=== PATIENT | female | born 1970 | race Caucasian/White ===

== ENCOUNTER 2018-11-19 21:04 | Outpatient (REF) | payer OTHER, SELFPAY | END 2018-11-19 21:24 | LOC: LBN 21:04 | PROVIDERS: PCP Nurse Practitioner Family; Visit Provider Nurse Practitioner Family | DX: N30.90 Cystitis, unspecified without hematuria (principal) | CPT/HCPCS: 87086 ==

== ENCOUNTER 2018-12-27 01:50 | Outpatient (CLI) | payer OTHER, SELFPAY ==
[2018-12-27 10:03] LABS: Abs Immature Grans 0.02 k/cumm (0.0-0.09); Absolute Basophil Count 0.03 k/cumm (0.0-0.2); Absolute Lymphocyte Count 1.28 k/cumm (1.2-3.4); Absolute Monocyte Count 0.69 k/cumm (0.11-0.7); Absolute Neutrophil Count 6.72 k/cumm (1.2-6.7); Basophils % 0.3; Eosinophils % 1.1; HCT 37.9 % (36.0-46.0); HGB 12.4 g/dL (12.0-15.5); Immature Grans % 0.2; Lymphocytes % 14.5; Mean Corp. HGB Concentration 32.7 g/dL (32.0-36.0); Mean Corpuscular Hemoglobin 30.7 pg (27.0-33.0); Mean Corpuscular Volume 93.8 fL (80-95); Monocytes % 7.8; Neutrophils % 76.1; Platelet Count 317 x1000/uL (130-400); RBC 4.04 m/cumm (4.00-5.20); RBC Distribution Width 14.1 % (11.7-14.6); White Blood Cell Count 8.84 k/cumm (4.4-10.8)
[2018-12-27 12:41] LABS: ALT 29 U/L (12-78); AST 20 U/L (15-37); Albumin 3.5 g/dL (3.4-5.0); Alkaline Phosphatase 158 U/L (46-116); Anion Gap 9.2 mmol/L (3-11); BUN 22 mg/dL (7-18); Bilirubin, Total 0.9 mg/dL (0.2-1.0); CO2 28.8 mmol/L (21.0-32.0); CREATININE 1.09 mg/dL (0.55-1.02); Calcium 8.9 mg/dL (8.5-10.1); Chloride 100 mmol/L (98-107); Cholesterol 205 mg/dL (50-200); Estimated GFR 54.04 (mL/min/1.73m2); Glucose 92 mg/dL (70-100); HDL Cholesterol 49 mg/dL (40-60); LDL CHOLESTEROL 122 mg/dL (<100); Sodium 138 mmol/L (136-145); Total Protein 6.9 g/dL (6.4-8.2); Triglyceride 164 mg/dL (30-150)
[2018-12-27 14:44] LABS: Hemoglobin A1C 5.5 % (4.5-6.2)
[2018-12-29 08:32] LABS: Vitamin D 25 Total 35.5 ng/ml (30-100)
== END 2018-12-27 02:10 ==
PROVIDERS: PCP Nurse Practitioner Family; Visit Provider Nurse Practitioner Family
DX: E55.9 Vitamin D deficiency, unspecified (principal); I10 Essential (primary) hypertension; Z85.528 Personal history of other malignant neoplasm of kidney; E78.5 Hyperlipidemia, unspecified
CPT/HCPCS: 36415; 80053; 80061; 82306; 83721; 83036; 85025

== ENCOUNTER 2020-03-28 20:36 | Outpatient (REF) | payer OTHER, SELFPAY ==
[2020-03-28 21:21] LABS: Anion Gap 9.2 mmol/L (3-11); BUN 17 mg/dL (7-18); CO2 29.8 mmol/L (21.0-32.0); CREATININE 1.95 mg/dL (0.55-1.02); Calcium 9.3 mg/dL (8.5-10.1); Chloride 99 mmol/L (98-107); Glucose 106 mg/dL (74-106); Potassium 5.3 mmol/L (3.5-5.1); Sodium 138 mmol/L (136-145)
== END 2020-03-28 20:56 ==
LOC: LBN 20:36
PROVIDERS: PCP Nurse Practitioner Family; Visit Provider Nurse Practitioner Family
DX: N12 Tubulo-interstitial nephritis, not specified as acute or chronic (principal)
CPT/HCPCS: 80048

== ENCOUNTER 2020-04-04 21:57 | Outpatient (REF) | payer OTHER, SELFPAY ==
[2020-04-04 22:02] LABS: Anion Gap 10.7 mmol/L (3-11); BUN 14 mg/dL (7-18); CO2 28.3 mmol/L (21.0-32.0); CREATININE 1.46 mg/dL (0.55-1.02); Chloride 97 mmol/L (98-107); Glucose 85 mg/dL (74-106); Potassium 3.4 mmol/L (3.5-5.1); Sodium 136 mmol/L (136-145)
== END 2020-04-04 22:17 ==
LOC: LBN 21:57
PROVIDERS: PCP Nurse Practitioner Family; Visit Provider Nurse Practitioner Family
DX: N12 Tubulo-interstitial nephritis, not specified as acute or chronic (principal)
CPT/HCPCS: 80048

== ENCOUNTER 2020-04-13 12:18 | Outpatient (CLI) | payer OTHER, SELFPAY ==
--- NOTE | 2020-04-13 15:30 | DI.RAD_ITS ---
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 COMPARISON: CR CHEST 2 VIEWS PA,LAT from 10/19/2015 FINDINGS: MEDIASTINUM: Normal. HEART: Normal. PULMONARY VASCULATURE: Normal. LUNGS: No focal consolidating infiltrates. Linear scarring in the right lung base. PLEURAL SPACE: No pleural effusion or pneumothorax. BONE:Within normal limits for the patient's age. Thoracolumbar scoliosis. OTHER FINDINGS:Normal. IMPRESSION: No acute pulmonary findings. DATA REPOSITORY: RADIATION DOSE DELIVERED:
== END 2020-04-13 12:38 ==
PROVIDERS: PCP Nurse Practitioner Family; Visit Provider Nurse Practitioner Family
DX: Z85.528 Personal history of other malignant neoplasm of kidney (principal)
CPT/HCPCS: 71046

== ENCOUNTER 2020-10-07 01:53 | Outpatient (CLI) | payer OTHER, SELFPAY ==
[2020-10-07 16:51] LABS: Anion Gap 3.3 mmol/L (3-11); BUN 21 mg/dL (7-18); CO2 32.7 mmol/L (21.0-32.0); Chloride 100 mmol/L (98-107); Estimated GFR 59.18 (mL/min/1.73m2); Glucose 88 mg/dL (74-106); Potassium 3.8 mmol/L (3.5-5.1); Sodium 136 mmol/L (136-145)
== END 2020-10-07 01:54 | disposition home or self-care (01) ==
LOC: LBO 01:53
PROVIDERS: PCP Nurse Practitioner Family; Visit Provider Nurse Practitioner Family
DX: Z85.528 Personal history of other malignant neoplasm of kidney (principal)
CPT/HCPCS: 36415; 80048

== ENCOUNTER 2021-04-10 17:24 | Outpatient (REF) | payer OTHER, SELFPAY ==
--- NOTE | 2021-04-10 15:30 | PAPFT_PTH ---
PATIENT: Judith Kiran LOC: [facility] U#:[id number] AGE/SX: 50/F ROOM: RE04/10/[address]: JASON Simpson : 1970 BED: DIS: 04/10/2021 SPEC #: [id number] RECD: 04/10/21 18:33 STATUS: COLLETTE REQ #: [id number] MAGDIEL: 04/10/21 15:[address]: Kimberly Ortega DEPT: [facility] Cytology RECD BY: Estefany Schwartz Tissues: 1 - CX/ENDOCX FOR PAP SMEARS Procedures: PAP THIN PREP/UVM Screening HPV DNA PROBE Comments: [id number]
== END 2021-04-10 17:25 | disposition home or self-care (01) ==
LOC: LBN 17:24
PROVIDERS: PCP Nurse Practitioner Family; Visit Provider Nurse Practitioner Family
DX: Z12.4 Encounter for screening for malignant neoplasm of cervix (principal); Z11.51 Encounter for screening for human papillomavirus (HPV)
CPT/HCPCS: 88142; 87624

== ENCOUNTER 2021-04-20 03:14 | Outpatient (CLI) | payer OTHER, SELFPAY ==
[2021-04-20 17:14] LABS: Anion Gap 7.4 mmol/L (3-11); BUN 17 mg/dL (7-18); CO2 31.6 mmol/L (21.0-32.0); CREATININE 1.1 mg/dL (0.55-1.02); Calcium 8.7 mg/dL (8.5-10.1); Calculated LDL 114 mg/dL (<100); Chloride 100 mmol/L (98-107); Cholesterol 202 mg/dL (<200); Estimated GFR 53.01 (mL/min/1.73m2); Glucose 94 mg/dL (74-106); HDL Cholesterol 53 mg/dL (40-60); Potassium 3.4 mmol/L (3.5-5.1); Sodium 139 mmol/L (136-145); Triglyceride 179 mg/dL (<150)
== END 2021-04-20 03:15 | disposition home or self-care (01) ==
LOC: LBO 03:14
PROVIDERS: PCP Nurse Practitioner Family; Visit Provider Nurse Practitioner Family
DX: I10 Essential (primary) hypertension (principal); E78.5 Hyperlipidemia, unspecified
CPT/HCPCS: 36415; 80048; 80061

== ENCOUNTER 2022-04-17 02:30 | Outpatient (CLI) | payer OTHER, SELFPAY ==
[2022-04-17 13:13] LABS: Hemoglobin A1C 5.8 % (<5.7)
[2022-04-17 13:53] LABS: ALT 22 U/L (14-59); AST 18 U/L (15-37); Albumin 3.5 g/dL (3.4-5.0); Alkaline Phosphatase 147 U/L (46-116); Anion Gap 9.4 mmol/L (3-11); BUN 32 mg/dL (7-18); Bilirubin, Total 0.8 mg/dL (0.2-1.0); CO2 29.6 mmol/L (21.0-32.0); CREATININE 1.3 mg/dL (0.55-1.02); Chloride 100 mmol/L (98-107); Estimated GFR 50.41 (mL/min/1.73m2); Glucose 113 mg/dL (74-106); Potassium 3.1 mmol/L (3.5-5.1); Sodium 139 mmol/L (136-145); Total Protein 7.8 g/dL (6.4-8.2)
== END 2022-04-17 02:31 | disposition home or self-care (01) ==
LOC: LBO 02:34
PROVIDERS: PCP Nurse Practitioner Family; Visit Provider Nurse Practitioner Family
DX: I10 Essential (primary) hypertension (principal)
CPT/HCPCS: 36415; 80053; 83036

== ENCOUNTER 2022-05-30 02:24 | Outpatient (CLI) | payer OTHER, SELFPAY ==
[2022-05-30 16:14] LABS: Anion Gap 8.7 mmol/L (3-11); BUN 23 mg/dL (7-18); CO2 28.3 mmol/L (21.0-32.0); CREATININE 1.3 mg/dL (0.55-1.02); Calcium 9.3 mg/dL (8.5-10.1); Chloride 104 mmol/L (98-107); Glucose 102 mg/dL (74-106); Potassium 3.9 mmol/L (3.5-5.1); Sodium 141 mmol/L (136-145)
== END 2022-05-30 02:25 | disposition home or self-care (01) ==
PROVIDERS: PCP Nurse Practitioner Family; Visit Provider Nurse Practitioner Family
DX: I10 Essential (primary) hypertension (principal)
CPT/HCPCS: 36415; 80048

== ENCOUNTER 2022-10-04 03:07 | Outpatient (CLI) | payer OTHER, SELFPAY ==
--- NOTE | 2022-10-04 13:00 | NS.NUTBLAN_ITS ---
Judith was referred for weight management. 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 Works 7-3 p and alot of overtime. Diet recall: 9 am: 2 hard boiled eggs, lunch: lebanese yogurt and fruit, 3pm: snacks at home: fruit and yogurt, Dinner: take out- wraps, pizza, chowder Session today focused on creating a meal plan based on Judith's likes. Overall, her diet is well balanced and waters not include high amounts of sugar. She does not cook but enjoys many healthy take home meals. Provided information on how to follow a lower carb, higher protein meal plan with emphasis on complex carbs, lean protein and healthy fats (1300 kcal 80-100 g carb, 60-65 g protein, 45-50 g fat). At this time Judith cannot commit to any routine exercise secondary to back pain after being on her feet all day. Follow up to be scheduled.
== END 2022-10-04 03:08 | disposition home or self-care (01) ==
LOC: DS 03:08
PROVIDERS: PCP Nurse Practitioner Family; Visit Provider Dietitian, Registered
DX: E66.8 Other obesity (principal); R73.03 Prediabetes; Z68.33 Body mass index [BMI] 33.0-33.9, adult; Z71.3 Dietary counseling and surveillance
CPT/HCPCS: 97802

== ENCOUNTER 2024-04-20 19:08 | Outpatient (REF) | payer OTHER, SELFPAY ==
--- NOTE | 2024-04-20 14:00 | PAPFT_PTH ---
PATIENT: Judith Kiran LOC: [facility] U#:[id number] AGE/SX: 53/F ROOM: RE04/20/[address]: JASON Simpson : 1970 BED: DIS: 04/20/2024 SPEC #: [id number] RECD: 04/21/24 12:59 STATUS: COLLETTE REQ #: [id number] MAGDIEL: 04/20/24 14:[address]: Kimberly Ortega DEPT: [facility] [place] Cytology RECD BY: Estefany Schwartz Tissues: 1 - CX/ENDOCX FOR PAP SMEARS Procedures: PAP THIN PREP/UVM Screening HPV DNA PROBE Comments: [id number] (HPV 16 & 18/45)
== END 2024-04-20 19:09 | disposition home or self-care (01) ==
LOC: LBN 19:08
PROVIDERS: PCP Nurse Practitioner Family; Visit Provider Nurse Practitioner Family
DX: I10 Essential (primary) hypertension (principal); Z11.4 Encounter for screening for human immunodeficiency virus [HIV]; Z12.39 Encounter for other screening for malignant neoplasm of breast; Z11.59 Encounter for screening for other viral diseases; Z00.00 Encounter for general adult medical examination without abnormal findings; F33.9 Major depressive disorder, recurrent, unspecified; F41.1 Generalized anxiety disorder; E66.9 Obesity, unspecified
CPT/HCPCS: 88142; 87624

== ENCOUNTER 2024-05-25 03:36 | Outpatient (CLI) | payer OTHER, SELFPAY ==
[2024-05-25 16:03] LABS: HCT 36.6 % (36.0-46.0); HGB 11.7 g/dL (11.2-15.7); MCH 29.3 pg (27.0-33.0); MCV 92 fL (80-95); MPV 9.8 fL (8.0-11.0); Platelet Count 276 10^3/uL (130-400); RBC 3.99 10^6/uL (3.93-5.22); RDW 13.4 % (11.7-14.6); RDW-SD 45.8 fL; WBC 9.88 10^3/uL (4.4-10.8)
[2024-05-25 17:39] LABS: ALT 23 U/L (14-59); AST 17 U/L (15-37); Albumin 3.8 g/dL (3.4-5.0); Alkaline Phosphatase 121 U/L (46-116); Anion Gap 9.4 mmol/L (3-11); BUN 21 mg/dL (7-18); CO2 26.6 mmol/L (21.0-32.0); CREATININE 1.8 mg/dL (0.55-1.02); Calcium 9.5 mg/dL (8.5-10.1); Chloride 101 mmol/L (98-107); Estimated GFR 33.48 (mL/min/1.73m2); Glucose 88 mg/dL (74-106); Sodium 137 mmol/L (136-145); Total Protein 7.4 g/dL (6.4-8.2)
[2024-05-25 18:17] LABS: Calculated LDL 106 mg/dL (<100); Cholesterol 176 mg/dL (<200); HDL Cholesterol 48 mg/dL (40-60); Triglyceride 112 mg/dL (<150)
[2024-05-26 18:28] LABS: HBs Antibody, Quant <3.1 mIU/mL (See Note); Hepatitis B Surface Ab Negative (See Note)
[2024-05-26 18:37] LABS: Hepatitis B Surface Ag Negative (Negative)
[2024-05-26 19:06] LABS: Hep B Core Antibody Negative (Negative)
[2024-05-26 19:10] LABS: HIV-1/2 Ag & Ab Screen Negative (Negative)
[2024-05-26 19:14] LABS: Hepatitis C Ab w Rflx HCV PCR Negative (Negative)
== END 2024-05-25 03:37 | disposition home or self-care (01) ==
PROVIDERS: PCP Nurse Practitioner Family; Visit Provider Nurse Practitioner Family
DX: Z11.4 Encounter for screening for human immunodeficiency virus [HIV] (principal); I10 Essential (primary) hypertension; Z11.59 Encounter for screening for other viral diseases; N18.30 Chronic kidney disease, stage 3 unspecified
CPT/HCPCS: 36415; 80053; 80061; 85027; 86704; 86706; 86803; 87340; 87389

== ENCOUNTER 2024-06-22 03:00 | Outpatient (CLI) | payer OTHER, SELFPAY ==
[2024-06-22 17:26] LABS: ALT 21 U/L (14-59); AST 17 U/L (15-37); Albumin 3.8 g/dL (3.4-5.0); Alkaline Phosphatase 139 U/L (46-116); BUN 25 mg/dL (7-18); Bilirubin, Total 1.04 mg/dL (0.2-1.0); CREATININE 1.8 mg/dL (0.55-1.02); Calcium 9.7 mg/dL (8.5-10.1); Chloride 102 mmol/L (98-107); Estimated GFR 33.48 (mL/min/1.73m2); Glucose 85 mg/dL (74-106); Potassium 4.3 mmol/L (3.5-5.1); Sodium 140 mmol/L (136-145); Total Protein 7.1 g/dL (6.4-8.2); Vitamin D 25 Total 33.8 ng/mL (30-100)
[2024-06-22 17:46] LABS: PHOSPHORUS 5.1 mg/dL (2.6-4.7)
[2024-06-23 22:36] LABS: Parathyroid Hormone,Intact 39 pg/mL (19-88)
== END 2024-06-22 03:01 | disposition home or self-care (01) ==
PROVIDERS: PCP Nurse Practitioner Family; Visit Provider Nurse Practitioner Family
DX: I10 Essential (primary) hypertension (principal); N18.30 Chronic kidney disease, stage 3 unspecified
CPT/HCPCS: 36415; 80053; 82306; 83970; 84100

== ENCOUNTER 2024-06-24 21:47 | Outpatient (REF) | payer OTHER, SELFPAY ==
[2024-06-24 21:32] LABS: Bilirubin Negative (Negative); Blood Trace-intact (Negative); Clarity Clear (Clear); Glucose Negative (Negative); Ketones Negative (Negative); Leukocyte Esterase Negative (Negative); Nitrite Negative (Negative); Urobilinogen 0.2 mg/dL (Up to 0.2); pH 6.5 (5-8)
[2024-06-24 21:42] LABS: COMMENT (LAB VIEW ONLY) 51.57 mg/dL; Microalb ug/mg Crea 17.1 ug/mg Cr
[2024-06-24 21:44] LABS: Bacteria Few HPF (Negative); C & S Indicated? No; Casts Negative LPF (Negative); Crystals Negative HPF (Negative); Epithelial Cells Few HPF (Negative); Mucus Negative (Negative); RBC 0-2 HPF (0-2); WBC 0-2 HPF (0-5)
== END 2024-06-24 21:48 | disposition home or self-care (01) ==
LOC: LBN 21:47
PROVIDERS: PCP Nurse Practitioner Family; Visit Provider Nurse Practitioner Family
DX: N18.30 Chronic kidney disease, stage 3 unspecified (principal)
CPT/HCPCS: 81003; 81015; 82043; 82570